=== PATIENT | female | born 1980 | race Caucasian/White ===

== ENCOUNTER 2016-03-24 09:48 | Emergency (ER) | payer OTHER ==
[~2016-03-24] VITALS: Ht 152.4 cm; Wt 108.9 kg
[2016-03-24 10:18] LABS: URINE BILIRUBIN NEGATIVE (Negative); URINE BLOOD 2+ (Negative); URINE COLOR YELLOW; URINE GLUCOSE-RANDOM* NEGATIVE (Negative); URINE KETONES TRACE (Negative); URINE LEUKOCYTES-REFLEX 3+ (Negative); URINE PROTEIN (DIPSTICK) 1+ (Negative); URINE SPECIFIC GRAVITY 1.015 (1.003-1.035); URINE UROBILINOGEN 0.2 E.U./dl (0.2-1.0)
[2016-03-24 10:20] LABS: ABSOLUTE NEUTROPHILS 11.4 thou/uL (1.4-8.2); BASOPHILS 1.1 % (0.0-2.0); EOSINOPHILS 0.7 % (0.0-3.0); HEMATOCRIT 42.5 % (37.0-47.0); HEMOGLOBIN 14.4 gm/dL (12.0-15.0); LYMPHOCYTES 22.9 % (24.0-44.0); MCH 29.8 pg (26.0-34.0); MCHC 33.8 % (28.0-37.0); MONOCYTES 7.1 % (1.0-8.0); PLATELET COUNT 380 thou/uL (150-400); POLYS 68.2 % (36.0-66.0); RBC 4.82 mil/uL (4.20-5.00); RDW 13.2 % (10.5-14.5); WBC 16.7 thou/uL (4.0-11.0)
[2016-03-24 10:21] LABS: MANUAL DIFF NO
[2016-03-24 10:36] LABS: SQUAMOUS 4-10 Moderate /LPF (0-3)
[2016-03-24 10:37] LABS: CASTS None Seen /LPF (None Seen); CRYSTALS None Seen /LPF (None Seen); URINE WBC-REFLEX >25 Many /HPF (0-5)
[2016-03-24 10:38] LABS: URINE RBC 3-10 Few /HPF (0-2)
[2016-03-24 10:40] LABS: POTASSIUM 3.7 mmol/L (3.5-5.1)
[2016-03-24 10:41] LABS: CALCIUM 9.4 mg/dL (8.5-10.1); CREATININE 0.7 mg/dL (0.6-1.3); TOTAL BILIRUBIN 0.4 mg/dL (<0.1-1.0); TOTAL PROTEIN 8.4 g/dL (6.4-8.2)
[2016-03-24 10:42] LABS: ALBUMIN 3.9 g/dL (3.4-5.0)
[2016-03-24] MEDS ORDERED: KEFLEX500 MG PO (11:57)
[2016-03-24] MEDS ORDERED: HYDROCORTISONE30 G9 RECTAL (11:57)
[2016-03-24] MEDS ORDERED: COLACE100 MG PO (11:57)
[2016-03-24] MEDS ORDERED: MIRALAX255 GM PO (11:57)
[2016-03-24 12:24] VITALS: BP 132/76
== END 2016-03-24 12:25 | disposition home or self-care (01) ==
LOC: ER 09:48
PROVIDERS: Physician Assistant
DX: K92.2 Gastrointestinal hemorrhage, unspecified (principal); D72.829 Elevated white blood cell count, unspecified; K64.9 Unspecified hemorrhoids; N39.0 Urinary tract infection, site not specified; K59.00 Constipation, unspecified